=== PATIENT | female | born 1965 | race Caucasian/White ===

== ENCOUNTER → 2019-02-08 | Outpatient (CLI) | payer BC ==
[~2019-02-08] MED LIST: GADOBENATE DIMEGLUMINE 0 ML IV ONE; SODIUM CHLORIDE 0.9% 50ML 0 ML ONE
[2019-02-08 10:55] LABS: BLOOD UREA NITROGEN 11 mg/dL (7-26); BUN/CREATININE RATIO 15 (6-25); CREATININE, SERUM 0.75 mg/dL (0.57-1.11); EST GLOMERULAR FILTRATION RATE > 60 ML/MIN (60-)
== END ==
LOC: MRI 10:05
PROVIDERS: ATTEND Internal Medicine Cardiovascular Disease
DX: I79.0 Aneurysm of aorta in diseases classified elsewhere (principal)
CPT/HCPCS: 36415; 82565; 84520